=== PATIENT | male | born 2000 | race Caucasian/White ===

== ENCOUNTER 2025-03-02 23:54 | Emergency (ER) | payer OTHER ==
[2025-03-03] MEDS ORDERED: Lidocaine 1% PF 5 ML VIAL ONE (00:02)
[2025-03-03] MEDS ORDERED: CEFAZOLIN 1 GM VIAL ONE (00:51)
[2025-03-03] MEDS ORDERED: Boostrix 0.5 ML (Tdap) VIAL (>/=7 yrs of age) ONE (00:52)
[2025-03-03] MEDS ORDERED: HYDROcodone/Acetaminophen 5/325 mg Tablet ONE (00:54)
== END 2025-03-03 01:29 | disposition home or self-care (01) ==
LOC: BURERS 23:54
DX: S61.313A Laceration without foreign body of left middle finger with damage to nail, initial encounter (principal); Z23 Encounter for immunization; W20.8XXA Other cause of strike by thrown, projected or falling object, initial encounter; Y92.89 Other specified places as the place of occurrence of the external cause
CPT/HCPCS: 12042; 90471; 90715; 96372; J0690; J3490